=== PATIENT | male | born 1990 | race Two or more races ===

== ENCOUNTER 2025-02-25 15:44 | Emergency (ER) | payer MEDICARE, OTHER ==
[~2025-02-25] VITALS: Ht 172.7 cm; Wt 73.5 kg
[2025-02-25 16:40] LABS: PLATELET COUNT (AUTO) 259 K/uL (150-450); RED BLOOD CELL COUNT(AUTO) 3.47 MIL/uL (4.5-6.0); RED CELL DISTRIBUTION WIDTH 16.9 % (11.5-15.0); WHITE BLOOD COUNT (AUTO) 5.9 K/uL (4.3-11.0)
[2025-02-25 16:50] LABS: CALCIUM, SERUM 7.6 mg/dL (8.5-10.1); CREATININE 4.8 mg/dL (0.6-1.3); SODIUM SERUM 141 mmol/L (136-145); UREA NITROGEN, BLOOD 24 mg/dL (7-18)
[2025-02-25] MEDS ORDERED: MORPHINE SULFATE INJ 2 MG/ML DISP.SYRIN ONE ×2 (17:07→18:09)
[2025-02-25] MEDS: MORPHINE SULFATE INJ 2 MG/ML DISP.SYRIN IV ONE ×2 (17:09→18:13)
[2025-02-25 20:23] VITALS: BP 130/76; TEMP 98.3; O2SAT 98
== END 2025-02-25 20:24 | disposition home or self-care (01) ==
LOC: ER 15:46
DX: M94.0 Chondrocostal junction syndrome [Tietze] (principal); I13.11 Hypertensive heart and chronic kidney disease without heart failure, with stage 5 chronic kidney disease, or end stage renal disease; E11.22 Type 2 diabetes mellitus with diabetic chronic kidney disease; I25.2 Old myocardial infarction; N18.6 End stage renal disease; Z95.5 Presence of coronary angioplasty implant and graft; Z99.2 Dependence on renal dialysis
CPT/HCPCS: 99285; 96374; 71045; 93005; 96376; 85025; 80048; 36415; 84484 ×2; J7030; J2270 ×2